=== PATIENT | male | born 1990 ===

== ENCOUNTER 2018-09-07 15:30 | Emergency (ER) | payer OTHER ==
[2018-09-07 15:35] VITALS: BP 143/97; PULSE 100; RESP 16; TEMP 98.4; O2SAT 100
--- NOTE | 2018-09-07 16:23 | ED PDOC ---
HPI: Psych/Substance Abuse Time Seen by Provider: 09/07/18 16:05 Chief Complaint (Nursing): Psychiatric Evaluation Chief Complaint (Provider): ETOH History Per: Patient History/Exam Limitations: no limitations Onset/Duration Of Symptoms: Sudden Onset Current Symptoms Are (Timing): Gone Now Suicide/Self Injury Attempted (Context): None Modifying Factor(s): None (Pt brought in to the ED by the [employer] Police after they were notified by his that he had een drinking. The police arrived at his house and the patient does not deny he had been drinking, but upon evaluation appears with a steady gait, without SI or HI and speaks clearly and distinctly. The patient complains of no medical issues that need attention emergency or otherwise. ) Past Medical History Reviewed: Historical Data, Nursing Documentation, Vital Signs Vital Signs: Last Vital Signs Temp 98.4 F 09/07/18 15:32 Pulse 100 H 09/07/18 15:32 Resp 16 09/07/18 15:32 BP 143/97 H 09/07/18 15:32 Pulse Ox 100 09/07/18 15:32 - Medical History PMH: Depression, Seizures Denies: Diabetes, Hepatitis, HIV, HTN, Chronic Kidney Disease, Sexually Transmitted Disease - Family History Family History: States: Unknown Family Hx - Immunization History Hx Tetanus Toxoid Vaccination: No Hx Influenza Vaccination: No Hx Pneumococcal Vaccination: No - Home Medications Home Medications: Ambulatory Orders Medication Instructions Recorded Meclizine [Antivert] 12.5 mg PO Q12 PRN 09/07/18 clonazePAM [Klonopin] 0.5 mg PO Q12 09/07/18 - Allergies Allergies/Adverse Reactions: Allergies Allergy/AdvReac Type Severity Reaction Status Date / Time No Known Allergies Allergy Unverified 09/07/18 15:31 Review of Systems ROS Statement: Except As Marked, All Systems Reviewed And Found Negative Physical Exam - Reviewed Nursing Documentation Reviewed: Yes Vital Signs Reviewed: Yes - Physical Exam Appears: Positive for: Well, Non-toxic, No Acute Distress. Negative for: Uncomfortable Head Exam: Positive for: ATRAUMATIC, NORMAL INSPECTION Skin: Positive for: Normal Color, Warm, Dry. Negative for: Diaphoresis Eye Exam: Positive for: Normal appearance, EOMI, PERRL. Negative for: Nystagmus, Periorbital swelling, Periorbital tenderness ENT: Positive for: Normal ENT Inspection Neck: Positive for: Normal Cardiovascular/Chest: Positive for: Regular Rate, Rhythm Respiratory: Positive for: Normal Breath Sounds Pulses-Carotid (L): 2+ Pulses-Carotid (R): 2+ Pulses-Radial (L): 2+ Pulses-Radial (R): 2+ - ECG O2 Sat by Pulse Oximetry: 100 Medical Decision Making Medical Decision Making: Pt will be evalated for ETOH and illict drugs with a plan to discharge Disposition - Clinical Impression Clinical Impression: Alcohol use disorder Counseled Patient/Family Regarding: Studies Performed, Diagnosis, Need For Followup - Disposition Disposition: Routine/Home Disposition Time: 16:30 Condition: STABLE Additional Instructions: FOR MENTAL HEALTH ISSUES FOLLOW UP WITH [facility] [address] [place] [address] WEDNESDAY-WEDNESDAY: 9AM-8PM WEDNESDAY AND WEDNESDAY: 10AM-6PM FOR HELP WITH YOUR ALCOHOL PROBLEM CONTACT THE ADDICTION SERVICES HOTLINE AT [phone] Instructions: Alcohol Use - When Is Drinking a Problem?, Alcohol Abuse and Alcoholism (DC) Forms: Cocodot (German)
[2018-09-07 17:39] LABS: BARBITURATES, UR NEGATIVE (NEGATIVE); BENZODIAZEPINES, UR NEGATIVE (NEGATIVE); OPIATES, UR NEGATIVE (NEGATIVE); PHENCYCLIDINE, UR NEGATIVE (NEGATIVE)
== END 2018-09-07 18:24 | disposition home or self-care (01) ==
LOC: H.ER 15:30
DX: F10.129 Alcohol abuse with intoxication, unspecified (principal)
CPT/HCPCS: 99283; G0480